=== PATIENT | male | born 1980 | race Two or more races ===

== ENCOUNTER 2023-05-27 22:40 | Emergency (ER) | payer SELFPAY ==
[~2023-05-27] VITALS: Ht 170.2 cm; Wt 96.4 kg
[2023-05-27 22:56] VITALS: BP 132/75; PULSE 68; RESP 16; TEMP 99.5
[2023-05-27] MEDS ORDERED: ACETAMINOPHEN/CODEINE 300-30 MG TABLET PO ONE (23:45)
[2023-05-27] MEDS ORDERED: IBUPROFEN 600 MG TABLET PO ONE (23:45)
[2023-05-27] MEDS ORDERED: CEPHALEXIN MONOHYDRATE 500 MG CAPSULE PO ONE (23:45)
[2023-05-27] MEDS ORDERED: BACITRACIN 0.9 GM PACKET OINTMENT TP ONE (23:45)
[2023-05-27] MEDS ORDERED: PERTUSS(ACELL),DIPH,TET VAC/PF 0.5 ML SYRINGE IM. ONE (23:45)
[2023-05-28] MEDS ORDERED: CEPH-558 PO (01:32)
[2023-05-28] MEDS ORDERED: ACET-2080 PO (01:32)
[2023-05-28] MEDS ORDERED: IBUP-1554 PO (01:32)
== END 2023-05-28 01:51 | disposition home or self-care (01) ==
LOC: EMS 22:45
DX: S61.232A Puncture wound without foreign body of right middle finger without damage to nail, initial encounter (principal); X58.XXXA Exposure to other specified factors, initial encounter; F17.210 Nicotine dependence, cigarettes, uncomplicated; Y93.89 Activity, other specified; Y92.89 Other specified places as the place of occurrence of the external cause; Y99.8 Other external cause status
CPT/HCPCS: 90471; 90715; 99284

== ENCOUNTER 2023-06-20 15:53 | Emergency (ER) | payer OTHER ==
[~2023-06-20] VITALS: Ht 154.9 cm; Wt 72.3 kg
[~2023-06-20 15:53] MED LIST: ACET-2080 PO; CEPH-558 PO; IBUP-1554 PO
[2023-06-20 16:20] VITALS: TEMP 97.8
[2023-06-20] MEDS ORDERED: PENI500T2 PO (16:26)
[2023-06-20] MEDS ORDERED: IBUP-1492 PO (16:28)
[2023-06-20 16:45] VITALS: BP 134/71; PULSE 71; RESP 14
== END 2023-06-20 17:00 | disposition home or self-care (01) ==
LOC: EMS 15:54
DX: K08.89 Other specified disorders of teeth and supporting structures (principal); F17.210 Nicotine dependence, cigarettes, uncomplicated
CPT/HCPCS: 99283; Z7502